=== PATIENT | female | born 1970 | race Two or more races ===

== ENCOUNTER 2023-03-26 14:17 | Emergency (ER) | payer SELFPAY ==
[~2023-03-26] VITALS: Ht 172.7 cm; Wt 105.3 kg
[2023-03-26] MEDS ORDERED: PRED20TA2 PO (14:55)
[2023-03-26] MEDS ORDERED: ACYC400T16 GT (14:55)
[2023-03-26 15:08] VITALS: BP 155/92; PULSE 54; RESP 18; O2SAT 98
[2023-03-26 15:15] LABS: Basophils # (auto) 0.1 10 ^3/uL (0-0.2); Basophils % (auto) 1.2 % (0.0-2.0); Eosinophils # (auto) 0.3 10 ^3/uL (0-0.8); Eosinophils % (auto) 3.9 % (0.0-7.0); Hematocrit 49.4 % (36.0-46.0); Hemoglobin 16.4 g/dL (12.2-16.2); Lymphocytes # (auto) 1.6 10 ^3/uL (0.4-5.4); Lymphocytes % (auto) 22.3 % (10.0-50.0); Mean Corpuscular Hemoglobin 31.7 pg (28.0-32.0); Mean Corpuscular Hgb Conc. 33.2 g/dL (32.0-36.0); Mean Corpuscular Volume 95.3 fL (80.0-100.0); Monocytes # (auto) 0.6 10 ^3/uL (0-1.3); Monocytes % (auto) 8.8 % (0.0-12.0); Neutrophils # (auto) 4.6 10 ^3/uL (1.6-8.6); Neutrophils % (auto) 63.8 % (37.0-80.0); Nucleated Red Blood Cells % 0.1 %; Red Blood Cells 5.18 10^6/uL (4.0-5.20); Red Cell Distribution Width 14.3 % (11.8-14.3); White Blood Cell 7.2 10^3/uL (4.4-10.8)
[2023-03-26 15:21] LABS: Anion Gap 4 (5-15); Carbon Dioxide 30 mmol/L (20-30); Chloride 108 mmol/L (98-107); Potassium 4.3 mmol/L (3.5-5.1); Sodium 142 mmol/L (136-145)
[2023-03-26 15:22] LABS: Calcium 9.2 mg/dL (8.7-10.4)
[2023-03-26 15:27] LABS: BUN/Creatinine Ratio 21.9 (10.0-20.0); Blood Urea Nitrogen 16 mg/dL (9-23); Glucose 78 mg/dL (74-106)
== END 2023-03-26 15:10 | disposition home or self-care (01) ==
LOC: ER 14:17
DX: G51.0 Bell's palsy (principal); R51.9 Headache, unspecified
CPT/HCPCS: 36415; 70450; 80048; 84484; 85025; 93005